=== PATIENT | female | born 2000 | race Hispanic/Latino ===

== ENCOUNTER 2022-11-02 22:38 | Observation (INO) | payer OTHER, MEDICAID ==
[~2022-11-02] VITALS: Ht 157.5 cm; Wt 100.7 kg
[2022-11-02 22:40] VITALS: BP 137/71; PULSE 96; RESP 20
[2022-11-02] MEDS ORDERED: LACTATED RINGERS 1000ML IV PRN (23:00)
[2022-11-02 23:17] LABS: APPEARANCE,URINE CLEAR (CLEAR); BILIRUBIN,URINE NEGATIVE (NEGATIVE); COLOR,URINE YELLOW (YELLOW); GLUCOSE, URINE (UA) NEGATIVE (NEGATIVE); KETONES,URINE NEGATIVE (NEGATIVE); LEUKOCYTE ESTERASE ,URINE 75 Leu/uL (NEGATIVE); NITRATE,URINE NEGATIVE (NEGATIVE); OCCULT BLOOD,URINE NEGATIVE (NEGATIVE); PROTEIN,URINE 30 mg/dL (NEGATIVE); UROBILINOGEN,URINE 0.2 mg/dL (0.2-1.0)
[2022-11-02 23:20] LABS: ADD UA MICROSCOPIC YES
[2022-11-02 23:24] LABS: MUCUS,URINE RARE LPF (None Seen); RBC,URINE 0-1 /HPF (0-1); SQUAMOUS EPITHELIAL CELL,UR RARE /HPF (0-2)
[2022-11-02 23:31] LABS: AMPHET/METH SCREEN,URINE NEGATIVE (NEGATIVE); BARBITURATE SCREEN, URINE NEGATIVE (NEGATIVE); BENZODIAZEPINES SCREEN,URINE NEGATIVE (NEGATIVE); CANNABINOID SCREEN,URINE NEGATIVE (NEGATIVE); COCAINE SCREEN,URINE NEGATIVE (NEGATIVE); OPIATE SCREEN,URINE NEGATIVE (NEGATIVE); PHENCYCLIDINE SCREEN,URINE NEGATIVE (NEGATIVE)
[2022-11-24] MEDS ORDERED: PREN-154 PO
[2022-11-24] MEDS ORDERED: ACET-2079 PO (17:35)
== END 2022-11-03 01:00 | disposition home or self-care (01) ==
LOC: EDH 22:38 → LDH 22:39
PROVIDERS: ADMIT Obstetrics & Gynecology; ATTEND Obstetrics & Gynecology
DX: O26.893 Other specified pregnancy related conditions, third trimester (principal); R10.2 Pelvic and perineal pain; O99.891 Other specified diseases and conditions complicating pregnancy; M54.50 Low back pain, unspecified; Z3A.36 36 weeks gestation of pregnancy; Z87.891 Personal history of nicotine dependence
CPT/HCPCS: 80305; 87088; 81001; 96360; G0378 ×2; G0379

== ENCOUNTER 2022-11-08 00:15 | Observation (INO) | payer OTHER, MEDICAID ==
[~2022-11-08] VITALS: Ht 157.5 cm; Wt 100.7 kg
[2022-11-08 00:16] VITALS: BP 121/74; PULSE 89; RESP 20
[2022-11-08 00:48] LABS: APPEARANCE,URINE CLEAR (CLEAR); BILIRUBIN,URINE NEGATIVE (NEGATIVE); COLOR,URINE YELLOW (YELLOW); GLUCOSE, URINE (UA) NEGATIVE (NEGATIVE); KETONES,URINE NEGATIVE (NEGATIVE); LEUKOCYTE ESTERASE ,URINE 250 Leu/uL (NEGATIVE); NITRATE,URINE NEGATIVE (NEGATIVE); OCCULT BLOOD,URINE NEGATIVE (NEGATIVE); PROTEIN,URINE 70 mg/dL (NEGATIVE)
[2022-11-08 00:49] LABS: ADD UA MICROSCOPIC YES
[2022-11-08 00:53] LABS: MUCUS,URINE MOD LPF (None Seen); SQUAMOUS EPITHELIAL CELL,UR MOD /HPF (0-2)
[2022-11-08] MEDS ORDERED: LACTATED RINGERS 1000ML IV ONE (01:00)
[2022-11-08 01:09] LABS: BACTERIA,URINE MOD /HPF (None Seen)
== END 2022-11-08 02:15 | disposition home or self-care (01) ==
LOC: EDH 00:15 → LDH 00:16
PROVIDERS: ADMIT Obstetrics & Gynecology; ATTEND Obstetrics & Gynecology
DX: O26.893 Other specified pregnancy related conditions, third trimester (principal); R10.2 Pelvic and perineal pain; R60.9 Edema, unspecified; R11.0 Nausea; O99.891 Other specified diseases and conditions complicating pregnancy; H53.8 Other visual disturbances; Z3A.37 37 weeks gestation of pregnancy
CPT/HCPCS: 87088; 81001; G0378 ×2; G0379; 59025

== ENCOUNTER 2022-11-20 00:16 | Observation (INO) | payer OTHER, MEDICAID ==
[~2022-11-20] VITALS: Ht 157.5 cm; Wt 102.1 kg
[2022-11-20 00:17] VITALS: PULSE 88; RESP 20
[2022-11-20 00:44] LABS: APPEARANCE,URINE CLEAR (CLEAR); BILIRUBIN,URINE NEGATIVE (NEGATIVE); COLOR,URINE LIGHT-YELLOW (YELLOW); GLUCOSE, URINE (UA) NEGATIVE (NEGATIVE); KETONES,URINE NEGATIVE (NEGATIVE); LEUKOCYTE ESTERASE ,URINE 500 Leu/uL (NEGATIVE); NITRATE,URINE NEGATIVE (NEGATIVE); OCCULT BLOOD,URINE NEGATIVE (NEGATIVE); PROTEIN,URINE NEGATIVE (NEGATIVE); UROBILINOGEN,URINE 0.2 mg/dL (0.2-1.0)
[2022-11-20 00:49] LABS: ADD UA MICROSCOPIC YES
[2022-11-20 00:52] LABS: BACTERIA,URINE RARE /HPF (None Seen); SQUAMOUS EPITHELIAL CELL,UR MOD /HPF (0-2)
[2022-11-20 01:00] VITALS: BP 113/68
[2022-11-24] MEDS ORDERED: PREN-154 PO
[2022-11-24] MEDS ORDERED: ACET-2079 PO (17:35)
== END 2022-11-20 01:40 | disposition home or self-care (01) ==
LOC: EDH 00:16 → LDH 00:17
PROVIDERS: ADMIT Obstetrics & Gynecology; ATTEND Obstetrics & Gynecology
DX: O62.9 Abnormality of forces of labor, unspecified (principal); O26.893 Other specified pregnancy related conditions, third trimester; R10.2 Pelvic and perineal pain; Z3A.39 39 weeks gestation of pregnancy; Z79.899 Other long term (current) drug therapy
CPT/HCPCS: 59025; 87088; 81001; G0378; G0379